=== PATIENT | female | born 1975 ===

== ENCOUNTER → 2016-11-08 | Outpatient (CLI) | payer BC, MEDICAID ==
[~2016-11-08] MED LIST: MOTRIN-DPS800 MG PO
== END | disposition home or self-care (01) ==
LOC: RAD.S 10:39
DX: O09.523 Supervision of elderly multigravida, third trimester (principal); Z3A.36 36 weeks gestation of pregnancy

== ENCOUNTER 2016-12-04 20:10 | Inpatient (IN) | payer BC, MEDICAID ==
[~2016-12-04] VITALS: Ht 167.6 cm; Wt 113.9 kg
--- NOTE | ~2016-12-04 | HP ---
ADMIT: 12/04/2016 RM/LOC: 226 [facility] MR#: [id number] [address] AISHWARYA G[address]MAN[address] [place] [address] History and Physical SEX: F AGE: 41 : 1975 DATE OF SERVICE: CHIEF COMPLAINT: Induction of labor for post dates and advanced maternal age. HISTORY OF PRESENT ILLNESS: Aishwarya is a very pleasant 41-year-old, 3, para 2-0-0-3 with a current intrauterine at 40 weeks and 2/7 days. Her has been without complication other than advanced maternal age. She presents for induction of labor for these reasons. She has had a recent cough and cold, and she has been treated with amoxicillin for that. She is group B strep positive. This was an unplanned , but otherwise doing okay, and she has been excited for the and baby. PAST MEDICAL HISTORY: Benign. PAST SURGICAL HISTORY: Benign. MEDICATIONS: 1. vitamin. 2. Amoxil. ALLERGIES: NO KNOWN DRUG ALLERGIES. PAST OB HISTORY: She did have vaginal deliveries in 1995 and delivered a male and then in 2000, had twin females. LABS: Blood type O positive, antibody negative, serology nonreactive, rubella immune, GBS positive, HIV negative, GC/Chlamydia negative, hepatitis B surface antigen negative. FAMILY HISTORY: Noncontributory. SOCIAL HISTORY: No alcohol, drug, or tobacco use. Father of baby is involved. REVIEW OF SYSTEMS: A 10-point review of systems obtained, per HPI otherwise negative. PHYSICAL EXAMINATION: VITAL SIGNS: Blood pressure 119/68, pulse 100, respirations 16, temperature 98.5. GENERAL: Alert and oriented x3. Does not appear to be in acute distress, but appears slightly nervous. HEENT: Pupils are round and reactive. Extraocular movements are intact. Throat clear. Trachea midline. HEART: Regular rate and rhythm. No murmurs. LUNGS: Clear to auscultation bilaterally. ABDOMEN: Soft, gravid. Nontender. Cervical check showed 4 cm, 50% effaced, -1 station. Previously, she was 3 cm by Nursing check. Tocometer shows contractions every 5 to 8 minutes, more regular than when initially started on monitor. heart tones category I. ADMIT: 12/04/2016 RM/LOC: 226 [facility] MR#: [id number] [address] GORMAN, AISHWARYA G [address] [place] [address] History and Physical SEX: F AGE: 41 : 1975 ASSESSMENT AND PLAN: A 41-year-old female with: 1. Intrauterine at 40 weeks and 2/7 days. 2. Post dates. 3. Advanced maternal age. 4. Group B strep positive. 5. Upper respiratory infection, on Amoxil. PLAN: The patient has already been started on low-dose Pitocin protocol. Cervix was slightly more dilated than last week. Originally had plan for misoprostol, but feel that Pitocin would be a better option for her. We will continue with expectant management at this point. Seems to be responding well so far. Continue routine maternal monitoring. Helio Corbett MD/ gisselle JOB #: [id number] CC: Helio Corbett, Attending Physician Helio Corbett, Family Physician
[2016-12-07] MEDS ORDERED: MOTRIN-DPS800 MG PO (16:11)
--- NOTE | 2016-12-18 08:10 | OR ---
ADMIT: 12/04/2016 RM/LOC: 226 [facility] MR#: [id number] [address] GORMANAISHWARYA [address] [place] [address] Operative/Delivery Room Report SEX: F AGE: 41 : 1975 SURGERY DATE: 12/05/2016 SURGEON: Helio Corbett MD PREOPERATIVE DIAGNOSES: 1. Intrauterine at 40 weeks and 2/7 days. 2. Induction of labor for post dates and advanced maternal age. 3. Post dates. 4. Advanced maternal age. 5. Group B strep positive. 6. Upper respiratory infection. POSTOPERATIVE DIAGNOSES: 1. Precipitous vaginal delivery. 2. GBS positive. Antibiotics x1. 3. Intrauterine at 40 weeks and 2/7 days. 4. Induction of labor for post dates and advanced maternal age. 5. Post dates. 6. Advanced maternal age. 7. Group B strep positive. 8. Upper respiratory infection. PROCEDURES: Spontaneous vaginal delivery. FINDINGS: 1. Live-born infant female born at 0220 hours with a weight of 7 pounds 5 ounces (3300 grams) and scores of 9 and 9 at 1 and 5 minutes respectively. 2. Intact placenta with 3-vessel cord with a triple knot noted in the cord. ANESTHESIA: None. FLUIDS: Crystalloid. ESTIMATED BLOOD LOSS: 150 mL. COMPLICATIONS: None immediate. INDICATIONS FOR PROCEDURE: Please refer to dictated H and P. Briefly, very pleasant, 41-year-old female, 3, para 2-0-0-3 with a current intrauterine at 40 weeks and 2/7 days presented the previous night for induction of labor for advanced maternal age and post dates. has been uncomplicated. She did have GBS x1. Received one dose of antibiotics. The patient was started on low-dose Pitocin protocol upon arrival approximately 10:10 p.m. The patient began progressing slowly over the next few hours and then got up to go the restroom and rapidly progressed from about 5 cm to 6.5 cm and then over the next few minutes to being complete. Membranes remained intact. Mother began pushing bringing the infant's vertex to the perineum. Continuous routine maternal monitoring ADMIT: 12/04/2016 RM/LOC: 226 [facility] MR#: [id number] [address] GORMANAISHWARYA MCKEON G [address] [place] [address] Operative/Delivery Room Report SEX: F AGE: 41 : 1975 was done throughout labor process and was reassuring. DESCRIPTION OF PROCEDURE: The patient was in the dorsal lithotomy position, draped in the usual fashion. Bulging bag and infant's vertex noted to be on the perineum. Given her GBS status, this is not ruptured. She delivered infant. Membranes intact and then ruptured spontaneously after delivery of the infant in full. Entire infant delivered without difficulty as soon as membranes ruptured. was noted to be vigorous and crying. Was held below maternal pelvis for approximately 30 seconds and dried. Subsequently, transferred to maternal abdomen, where nursing personnel were in attendance. Cord was clamped x2 and cut by one of her daughters at the bedside. Cord blood was then obtained. Placenta delivered intact in less than 5 minutes. It was noted to be a true triple knot in the cord. Twenty units of Pitocin was started in IV bag to help firm the uterus. Attention was then turned to the vaginal vault and cervix, which was noted to be free of laceration. Examination of the uterus was noted to be firm. Likewise, attention then turned to the perineum, which was also noted to be free of laceration. All needle and sponge counts were correct. There were no major complications with the procedure. Infant and mom were recovering in stable condition upon my departure. Helio Corbett MD/ gisselle JOB #: [id number] CC: Helio Corbett, Attending Physician Helio Corbett, Family Physician
--- NOTE | 2017-01-23 07:59 | DS ---
ADMIT: 12/04/2016 RM/LOC: 226 [facility] MR#: [id number] [address] VITA, AISHWARYA G [address] [place] [address] General Discharge Summary SEX: F AGE: 41 : 1975 ADMISSION DATE: 12/04/2016 DISCHARGE DATE: 12/06/2016 DELIVERY DATE: 12/05/2016. FINAL DIAGNOSES: 1. Intrauterine at 40 weeks 2/7 days. 2. Induction of labor for post dates and advanced maternal age. 3. Post dates. 4. Advanced maternal age. 5. Group B strep positive. 6. Delivery of live-born infant female born at 0220 hours with a weight of 7 pounds 5 ounces (3300 g). scores of 9 and 9 at 1 and 5 minutes respectively. Helio Corbett MD/ modl JOB #: [id number] CC: Helio Corbett MD, Attending Physician Helio Corbett MD, Family Physician
== END 2016-12-06 10:11 | disposition home or self-care (01) | DRG 775 ==
LOC: 2LDRP 20:10 → BC 20:10 → 2LDRP 20:15
PROVIDERS: ADMIT Family Medicine
PROC: 10E0XZZ Delivery of Products of Conception, External Approach (ICD-10-PCS; principal; 2016-12-05)
PROC: 3E033VJ Introduction of Other Hormone into Peripheral Vein, Percutaneous Approach (ICD-10-PCS; principal; 2016-12-05)
DX: O48.0 Post-term pregnancy (principal); J06.9 Acute upper respiratory infection, unspecified; O99.52 Diseases of the respiratory system complicating childbirth; O69.2XX0 Labor and delivery complicated by other cord entanglement, with compression, not applicable or unspecified; O99.824 Streptococcus B carrier state complicating childbirth; Z3A.40 40 weeks gestation of pregnancy; Z37.0 Single live birth